=== PATIENT | male | born 1935 | race Caucasian/White ===

== ENCOUNTER 2018-09-17 14:40 | Emergency (ER) | payer MEDICARE, OTHER ==
[~2018-09-17] VITALS: Ht 185.4 cm; Wt 123.2 kg
[~2018-09-17 14:40] MED LIST: ALLO100T PO; ASPI-611 PO; CHOL10002 PO; COLC0.6T69 PO; DABI150C PO; DOCU-20 PO; DULO-31 PO; FLO0.4C PO; GABA-530 PO; LOSA25TA96 PO; METO100T14 PO; NITR0.4T51 SL; PANT40TA39 PO; POLY17PO26 PO; PRAV20TA4 PO; TRAM50TA2 PO
--- NOTE | 2018-09-17 15:08 | NUR ---
BIB EMS FROM [place] DUE TO SOB AND CHEST PAIN WITH INSPIRATION AND COUGH. WHEEZING WITH NEB IN PROGRESS. #20 L FA. BG 107. DENIES CHEST PAIN AT PRESENT. HX CHF, PACEMAKER, COPD
[2018-09-17] MEDS ORDERED: methylPREDNISolone sod succ 125mg/2ml vial IV ONE ×2 (15:15→17:55)
[2018-09-17] MEDS ORDERED: ipratropium/albuterol 3ml nebule NEB ONE (15:15)
[2018-09-17] MEDS ORDERED: albuterol 2.5 MG/3 ML nebule NEB ONE (15:15)
[2018-09-17 15:42] LABS: BASOPHILS % (AUTO) 0.6 % (0-1); EOSINOPHILS # (AUTO) 0.2 X10'3 (0-0.9); EOSINOPHILS % (AUTO) 2.5 % (0-6); HEMATOCRIT 36.3 % (42.0-52.0); HEMOGLOBIN 11.6 g/dl (14.0-17.9); LYMPHOCYTES # (AUTO) 1.4 X10'3 (1.1-4.8); LYMPHOCYTES % (AUTO) 22.6 % (21-51); MEAN CORPUSCULAR HEMOGLOBIN 28.9 PG (27.0-31.0); MEAN CORPUSCULAR VOLUME 90.4 FL (78-98); MONOCYTES # (AUTO) 0.7 X10'3 (0-0.9); MONOCYTES % (AUTO) 11.9 % (2-12); NEUTROPHILS # (AUTO) 3.7 X10'3 (1.8-7.7); NEUTROPHILS % (AUTO) 62.4 % (42-75); PLATELET COUNT 264 X10'3 (140-440); RED BLOOD COUNT 4.02 X10'6 (4.70-6.10); RED CELL DISTRIBUTION WIDTH 16.3 % (11.5-14.5)
[2018-09-17 15:55] LABS: INR 1.2 INR; PROTHROMBIN TIME 11.6 SECONDS (9.0-12.0)
[2018-09-17 15:59] LABS: ALANINE AMINOTRANSFERASE 15 U/L (12-78); ALBUMIN 3.1 G/DL (3.4-5.0); ALBUMIN/GLOBULIN RATIO 0.8 (1.1-1.5); ALKALINE PHOSPHATASE 51 IU/L (46-116); ANION GAP 9 (8-16); ASPARTATE AMINO TRANSFERASE 19 U/L (10-37); BILIRUBIN,TOTAL 0.3 MG/DL (0.1-1.0); BLOOD UREA NITROGEN 19 MG/DL (7-18); BUN/CREATININE RATIO 12.9 (5.4-32.0); CALCIUM 8.9 MG/DL (8.5-10.1); CHLORIDE 104 MMOL/L (99-107); CREATININE 1.47 MG/DL (0.60-1.10); GLUCOSE 108 MG/DL (70-104); POTASSIUM 3.8 MMOL/L (3.5-5.1); SODIUM 139 MMOL/L (135-145); TOTAL CARBON DIOXIDE 26.5 MMOL/L (24-32); TOTAL PROTEIN 6.8 G/DL (6.4-8.2); eGFR 46 ML/MIN
[2018-09-17] MEDS ORDERED: CefTRIAXone 2gm/D5W 50ml 50 ML IV ONE (16:25)
[2018-09-17] MEDS ORDERED: ALBU18HF2 INH (17:52)
[2018-09-17] MEDS ORDERED: PRED20TA PO (17:52)
[2018-09-17] MEDS ORDERED: AZIT250T PO (17:52)
[2018-09-17 18:36] VITALS: BP 175/82
== END 2018-09-17 18:38 | disposition home or self-care (01) ==
LOC: ER 14:40
DX: J44.1 Chronic obstructive pulmonary disease with (acute) exacerbation (principal); R06.09 Other forms of dyspnea; I48.91 Unspecified atrial fibrillation; I11.0 Hypertensive heart disease with heart failure; I50.9 Heart failure, unspecified; E78.00 Pure hypercholesterolemia, unspecified; G89.29 Other chronic pain; Z98.890 Other specified postprocedural states; Z79.82 Long term (current) use of aspirin; Z79.899 Other long term (current) drug therapy
CPT/HCPCS: 36415; 71045; 80053; 83880; 84484; 85025; 85610; 93005; 94640; 96365; 96375; 99284; J0696; J2930

== ENCOUNTER 2018-12-15 18:31 | Emergency (ER) | payer MEDICARE, OTHER ==
[~2018-12-15] VITALS: Ht 182.9 cm; Wt 120.0 kg
[~2018-12-15 18:31] MED LIST changes: +ALBU18HF2 INH; +AZIT250T PO
--- NOTE | 2018-12-15 18:54 | NUR ---
christiano, , bedside. she witnessed both falls.
[2018-12-15] MEDS ORDERED: normal saline 1000ML IV soln IVB ONE (18:55)
[2018-12-15 19:21] LABS: BASOPHILS % (AUTO) 0.5 % (0-1); EOSINOPHILS # (AUTO) 0.1 X10'3 (0-0.9); EOSINOPHILS % (AUTO) 1.6 % (0-6); HEMATOCRIT 32.3 % (42.0-52.0); HEMOGLOBIN 10.5 g/dl (14.0-17.9); LYMPHOCYTES % (AUTO) 28.9 % (21-51); MEAN CORPUSCULAR HEMOGLOBIN 27.8 PG (27.0-31.0); MEAN CORPUSCULAR HGB CONC 32.3 g/dL (33.0-36.5); MEAN CORPUSCULAR VOLUME 85.9 FL (78-98); MEAN PLATELET VOLUME 9.2 FL (7.4-10.4); MONOCYTES # (AUTO) 0.8 X10'3 (0-0.9); MONOCYTES % (AUTO) 11.1 % (2-12); NEUTROPHILS # (AUTO) 4.1 X10'3 (1.8-7.7); NEUTROPHILS % (AUTO) 57.9 % (42-75); PLATELET COUNT 329 X10'3 (140-440); RED BLOOD COUNT 3.77 X10'6 (4.70-6.10); RED CELL DISTRIBUTION WIDTH 16.8 % (11.5-14.5); WHITE BLOOD COUNT 7.1 X10'3 (4.5-11.0)
[2018-12-15 19:27] LABS: ALANINE AMINOTRANSFERASE 14 U/L (12-78); ALBUMIN 3.1 G/DL (3.4-5.0); ALBUMIN/GLOBULIN RATIO 0.8 (1.1-1.5); ALKALINE PHOSPHATASE 53 IU/L (46-116); ANION GAP 7 (8-16); ASPARTATE AMINO TRANSFERASE 10 U/L (10-37); BILIRUBIN,TOTAL 0.4 MG/DL (0.1-1.0); BLOOD UREA NITROGEN 29 MG/DL (7-18); BUN/CREATININE RATIO 14.4 (5.4-32.0); CALCIUM 9.2 MG/DL (8.5-10.1); CHLORIDE 103 MMOL/L (99-107); CREATININE 2.01 MG/DL (0.60-1.10); GLUCOSE 122 MG/DL (70-104); POTASSIUM 3.7 MMOL/L (3.5-5.1); SODIUM 136 MMOL/L (135-145); TOTAL CARBON DIOXIDE 25.7 MMOL/L (24-32); TOTAL PROTEIN 6.8 G/DL (6.4-8.2); eGFR 32 ML/MIN
--- NOTE | 2018-12-15 19:30 | NUR ---
ICE PACK APPLIED TO LEFT ARM EDEMA.
[2018-12-15] MEDS ORDERED: acetaminophen 325mg tablet PO ONE (20:40)
[2018-12-15 21:19] VITALS: BP 123/60
[2018-12-15] MEDS ORDERED: HYDROcodone/acetaminophen 10/325mg tab PO ONE (21:20)
[2018-12-15] MEDS ORDERED: HYDR-4353 PO (21:21)
== END 2018-12-15 21:50 | disposition home or self-care (01) ==
LOC: ER 18:32
DX: S00.211A Abrasion of right eyelid and periocular area, initial encounter (principal); E86.0 Dehydration; M25.511 Pain in right shoulder; M25.551 Pain in right hip; I48.91 Unspecified atrial fibrillation; I11.0 Hypertensive heart disease with heart failure; I50.9 Heart failure, unspecified; E78.00 Pure hypercholesterolemia, unspecified; G89.29 Other chronic pain; Z98.890 Other specified postprocedural states; Z79.82 Long term (current) use of aspirin; Z79.899 Other long term (current) drug therapy; W18.39XA Other fall on same level, initial encounter; Y93.89 Activity, other specified; Y92.89 Other specified places as the place of occurrence of the external cause; Y99.8 Other external cause status
CPT/HCPCS: 36415; 70450; 71045; 80053; 85025; 93005; 99284; J7030

== ENCOUNTER 2019-03-24 14:15 | Outpatient (CLI) | payer MEDICARE, OTHER ==
[~2019-03-24] VITALS: Ht 182.9 cm; Wt 117.9 kg
[2019-03-24 14:41] LABS: TOTAL HEMOGLOBIN 9.4 G/dl (14.0-17.9)
[2019-03-24] MEDS ORDERED: albuterol 2.5 MG/3 ML nebule NEB ONE (15:00)
== END 2019-03-24 23:59 | disposition home or self-care (01) ==
LOC: RT 14:15
PROVIDERS: ATTEND Specialist
DX: J98.4 Other disorders of lung (principal); I10 Essential (primary) hypertension; F17.200 Nicotine dependence, unspecified, uncomplicated
CPT/HCPCS: 85018; 94060; 94727; 94729; 94760

== ENCOUNTER 2019-04-26 04:59 | Day surgery (SDC) | payer MEDICARE, OTHER ==
[2019-04-21 13:35] LABS: BASOPHILS % (AUTO) 0.6 % (0-1); EOSINOPHILS # (AUTO) 0.2 X10'3 (0-0.9); EOSINOPHILS % (AUTO) 3.2 % (0-6); HEMATOCRIT 40.8 % (42.0-52.0); HEMOGLOBIN 13.3 g/dl (14.0-17.9); LYMPHOCYTES # (AUTO) 1.6 X10'3 (1.1-4.8); MEAN CORPUSCULAR HEMOGLOBIN 29.3 PG (27.0-31.0); MEAN CORPUSCULAR HGB CONC 32.5 g/dL (33.0-36.5); MEAN CORPUSCULAR VOLUME 90.1 FL (78-98); MEAN PLATELET VOLUME 9.2 FL (7.4-10.4); MONOCYTES # (AUTO) 0.7 X10'3 (0-0.9); MONOCYTES % (AUTO) 12.6 % (2-12); NEUTROPHILS # (AUTO) 3.2 X10'3 (1.8-7.7); NEUTROPHILS % (AUTO) 55.6 % (42-75); PLATELET COUNT 238 X10'3 (140-440); RED BLOOD COUNT 4.53 X10'6 (4.70-6.10); WHITE BLOOD COUNT 5.8 X10'3 (4.5-11.0)
[2019-04-21 13:46] LABS: ALBUMIN 3.3 G/DL (3.4-5.0); ANION GAP 11 (8-16); BLOOD UREA NITROGEN 27 MG/DL (7-18); CALCIUM 9.4 MG/DL (8.5-10.1); CHLORIDE 103 MMOL/L (99-107); CREATININE 1.69 MG/DL (0.60-1.10); GLUCOSE 105 MG/DL (70-104); POTASSIUM 4.3 MMOL/L (3.5-5.1); SODIUM 138 MMOL/L (135-145); TOTAL CARBON DIOXIDE 24.5 MMOL/L (24-32); eGFR 39 ML/MIN
[2019-04-21 13:48] LABS: PARTIAL THROMBOPLASTIN TIME 35 SECONDS (22-32)
[2019-04-21 15:24] LABS: ELLIPTOCYTES FEW; PLATELET ESTIMATE NORMAL; POLYCHROMASIA FEW
[2019-04-21 15:25] LABS: SCHISTOCYTES FEW
[2019-04-26] VITALS (19 sets, daily range): BP systolic 131–172; BP diastolic 55–77
[~2019-04-26] VITALS: Ht 182.9 cm; Wt 123.3 kg
[2019-04-26] MEDS ORDERED: normal saline 1,000 ML IV SCH (05:20)
[2019-04-26] MEDS ORDERED: LORazepam 0.5 MG tablet PO PRN (05:20)
[2019-04-26] MEDS ORDERED: diphenhydrAMINE 25mg capsule PO PRN (05:20)
[2019-04-26] MEDS ORDERED: FEBU40TA PO (05:47)
[2019-04-26] MEDS ORDERED: POTA-82 PO (05:47)
[2019-04-26] MEDS ORDERED: FURO40TA4 PO (05:47)
[2019-04-26] MEDS ORDERED: CYAN100T12 (05:47)
[2019-04-26] MEDS ORDERED: RIVA20TA PO (05:47)
[2019-04-26] MEDS ORDERED: SIME80TA16 (05:47)
[2019-04-26] MEDS ORDERED: iohexol 350 MG/ML 50ML vial IV ONE (06:28)
[2019-04-26] MEDS ORDERED: fentaNYL/PF 50MCG/1 ML 2ML syringe ONE (06:28)
[2019-04-26] MEDS ORDERED: midazolam 2 mg/2 ml injection ONE (06:28)
[2019-04-26] MEDS ORDERED: iohexol 350MG/ML 100ml bottle IV ONE (06:28)
[2019-04-26] MEDS ORDERED: LIDOcaine 1% (10mg/ml)w/preservative injection 20ml MDV ONE (06:28)
[2019-04-26] MEDS ORDERED: heparin 1,000unit/ml 10ml vial 10 ML ONE (06:45)
[2019-04-26] MEDS ORDERED: hydrALAZINE 20mg/ml inj. IV ONE (06:54)
[2019-04-26] MEDS ORDERED: ticagrelor 90mg tablet ONE (06:56)
[2019-04-26] MEDS ORDERED: HYDROcodone/acetaminophen 5mg/325mg tablet PO PRN (07:35)
[2019-04-26] MEDS ORDERED: ondansetron/PF 4mg/2ml inj IV PRN (07:35)
[2019-04-26] MEDS ORDERED: proCHLORperazine 10 MG/2 ml inj IV PRN (07:35)
[2019-04-26] MEDS ORDERED: acetaminophen 325mg tablet PO PRN (07:35)
[2019-04-26] MEDS ORDERED: HYDROcodone/acetaminophen 10/325mg tab PO PRN (07:35)
== END 2019-04-26 16:05 | disposition home or self-care (01) ==
LOC: SSTAY O 04:59
PROVIDERS: ATTEND Internal Medicine Interventional Cardiology
DX: I25.10 Atherosclerotic heart disease of native coronary artery without angina pectoris (principal); I13.0 Hypertensive heart and chronic kidney disease with heart failure and stage 1 through stage 4 chronic kidney disease, or unspecified chronic kidney disease; N18.9 Chronic kidney disease, unspecified; I48.91 Unspecified atrial fibrillation; I50.9 Heart failure, unspecified; G47.33 Obstructive sleep apnea (adult) (pediatric); M10.9 Gout, unspecified; E78.5 Hyperlipidemia, unspecified; Z95.0 Presence of cardiac pacemaker; Z79.899 Other long term (current) drug therapy; Z87.891 Personal history of nicotine dependence
CPT/HCPCS: 36415; 80048; 85025; 85610; 85730; 93005; 99152; 99153; C1769; C1874; C9600; J0360; J1644; J2001; J2250; J3010; J7030; Q0163; Q9967; A4620; A6258; C1760

== ENCOUNTER 2021-06-05 08:32 | Day surgery (SDC) | payer OTHER ==
[~2021-06-05] VITALS: Ht 182.9 cm; Wt 127.2 kg
[~2021-06-05 08:32] MED LIST changes: -ALBU18HF2 INH; -ALLO100T PO; -ASPI-611 PO; +ASPI81TA52 PO; -AZIT250T PO; -COLC0.6T69 PO; +CYAN100T6; -DABI150C PO; -DOCU-20 PO; +FEBU40TA PO; +FERR325T28 PO; +FURO40TA4 PO; +LOP25T PO; -METO100T14 PO; -NITR0.4T51 SL; -POLY17PO26 PO; +POTA-82 PO; +RIVA20TA PO; +SIME80TA16; +TICA90TA PO; -TRAM50TA2 PO
[2021-06-05] MEDS ORDERED: albumin 25% 100mL bottle x 1 IV PRN (08:55)
[2021-06-05] MEDS ORDERED: normal saline 1000ml 1,000 ML IV PRN (08:55)
[2021-06-05 09:15] VITALS: BP 136/71
[2021-06-05 09:39] LABS: BASOPHILS % (AUTO) 0.7 % (0-1); EOSINOPHILS # (AUTO) 0.2 X10'3 (0-0.9); EOSINOPHILS % (AUTO) 2.8 % (0-6); HEMATOCRIT 36.2 % (42.0-52.0); HEMOGLOBIN 12.3 g/dl (14.0-17.9); LYMPHOCYTES # (AUTO) 1.3 X10'3 (1.1-4.8); LYMPHOCYTES % (AUTO) 21.5 % (21-51); MEAN CORPUSCULAR HEMOGLOBIN 34.6 PG (27.0-31.0); MEAN CORPUSCULAR HGB CONC 33.9 g/dL (33.0-36.5); MEAN CORPUSCULAR VOLUME 102.1 FL (78-98); MEAN PLATELET VOLUME 9.8 FL (7.4-10.4); MONOCYTES # (AUTO) 0.5 X10'3 (0-0.9); MONOCYTES % (AUTO) 8.8 % (2-12); NEUTROPHILS % (AUTO) 66.2 % (42-75); PLATELET COUNT 263 X10'3 (140-440); RED BLOOD COUNT 3.54 X10'6 (4.70-6.10); RED CELL DISTRIBUTION WIDTH 14.3 % (11.5-14.5); WHITE BLOOD COUNT 6.1 X10'3 (4.5-11.0)
[2021-06-05] MEDS ORDERED: LEVO25TA7 PO (16:02)
[2021-06-05] MEDS ORDERED: CHOL200012 PO (16:02)
[2021-06-05] MEDS ORDERED: BACI1PAC7 TOP (16:02)
[2021-06-05] MEDS ORDERED: DULO60CA65 PO (16:02)
[2021-06-05] MEDS ORDERED: TRAM50TA2 PO (16:02)
[2021-06-05] MEDS ORDERED: GABA300C PO (16:02)
[2021-06-05] MEDS ORDERED: LIDO28.35 TOP (16:02)
[2021-06-05] MEDS ORDERED: CYAN-51 PO (16:02)
[2021-06-05] MEDS ORDERED: GUAI200T5 PO (16:02)
[2021-06-05] MEDS ORDERED: SIME80TA15 PO (16:02)
== END 2021-06-05 09:03 | disposition home or self-care (01) ==
LOC: SSTAY O 08:32
PROVIDERS: ATTEND Radiology Vascular & Interventional Radiology
DX: R91.1 Solitary pulmonary nodule (principal); Z53.8 Procedure and treatment not carried out for other reasons; Z79.899 Other long term (current) drug therapy; Z79.82 Long term (current) use of aspirin; Z98.890 Other specified postprocedural states
CPT/HCPCS: 36415; 85025; 85610

== ENCOUNTER 2021-06-07 08:30 | Day surgery (SDC) | payer OTHER ==
[~2021-06-07] VITALS: Ht 182.9 cm; Wt 127.6 kg
[2021-06-07] VITALS (24 sets, daily range): BP systolic 136–185; BP diastolic 50–98
[~2021-06-07 08:30] MED LIST changes: -ASPI81TA52 PO; +BACI1PAC7 TOP; -CHOL10002 PO; +CHOL200012 PO; +CYAN-51 PO; -CYAN100T6; -DULO-31 PO; +DULO60CA65 PO; -FEBU40TA PO; -FERR325T28 PO; -FURO40TA4 PO; -GABA-530 PO; +GABA300C PO; +GUAI200T5 PO; +LEVO25TA7 PO; +LIDO28.35 TOP; -LOP25T PO; -LOSA25TA96 PO; -POTA-82 PO; -PRAV20TA4 PO; +SIME80TA15 PO; -SIME80TA16; -TICA90TA PO; +TRAM50TA2 PO
[2021-06-07] MEDS ORDERED: albumin 25% 100mL bottle x 1 IV PRN (08:55)
[2021-06-07] MEDS ORDERED: fentaNYL/PF 50MCG/1 ML 2ML syringe ONE (09:02)
[2021-06-07] MEDS ORDERED: midazolam 1 mg/ML 2ml injection ONE (09:02)
[2021-06-07] MEDS ORDERED: gelatin sponge, absorbable (Gelfoam 12-7MM) sponge TP ONE (09:02)
--- NOTE | 2021-06-07 13:25 | NUR ---
Call to IR to notify Dr grijalva pt had 3 chest xrays completed. pt has no distress. on RA. Dr Grijalva in case, spoke with Laurence COWART.
--- NOTE | 2021-06-07 14:10 | NUR ---
Called from Laurence COWART from IR stating Dr Grijalva wants pt placed on low suction. Pt placed on left side, continuous low suction started. pt has no distress, no difficulty breathing, chest tube site is stable with no changes.
--- NOTE | 2021-06-07 15:00 | NUR ---
Spoke with Dr Grijalva. Stated will order stat chest xray to evaluate if pneumothorax is resolved. Ordered to clamp the tube and stated will order a final xray to see if any changes. Pt watching tv with no signs of distress.
--- NOTE | 2021-06-07 15:15 | NUR ---
clamped pt chest tube.
--- NOTE | 2021-06-07 16:32 | NUR ---
pt ambulated to bathroom, no assistance needed.
--- NOTE | 2021-06-07 17:00 | NUR ---
Dr Serrato at bedside, removed chest tube. Stated will order one additional chest xray and once resulted and no changes pt able to be dc'd. Dr serrato answered all pt and wifes questions.
== END 2021-06-07 17:45 | disposition home or self-care (01) ==
LOC: SSTAY O 08:30
PROVIDERS: ATTEND Radiology Vascular & Interventional Radiology
DX: R91.8 Other nonspecific abnormal finding of lung field (principal); J95.811 Postprocedural pneumothorax; I10 Essential (primary) hypertension; Z88.8 Allergy status to other drugs, medicaments and biological substances; Z79.899 Other long term (current) drug therapy; Z98.890 Other specified postprocedural states; Z87.891 Personal history of nicotine dependence; Z81.8 Family history of other mental and behavioral disorders; Y84.8 Other medical procedures as the cause of abnormal reaction of the patient, or of later complication, without mention of misadventure at the time of the procedure; Y92.239 Unspecified place in hospital as the place of occurrence of the external cause
CPT/HCPCS: 32408; 71045; 99152; 99153; J2250; J3010; 77012

== ENCOUNTER 2021-07-28 19:16 | Emergency (ER) | payer OTHER, MEDICARE ==
[~2021-07-28] VITALS: Ht 182.9 cm; Wt 117.3 kg
[2021-07-28 19:56] LABS: BASOPHILS % (AUTO) 0.7 % (0-1); EOSINOPHILS # (AUTO) 0.2 X10'3 (0-0.9); EOSINOPHILS % (AUTO) 3.6 % (0-6); HEMATOCRIT 30.7 % (42.0-52.0); HEMOGLOBIN 10.3 g/dl (14.0-17.9); LYMPHOCYTES # (AUTO) 1.3 X10'3 (1.1-4.8); LYMPHOCYTES % (AUTO) 19.6 % (21-51); MEAN CORPUSCULAR HEMOGLOBIN 31.7 PG (27.0-31.0); MEAN CORPUSCULAR HGB CONC 33.5 g/dL (33.0-36.5); MEAN CORPUSCULAR VOLUME 94.7 FL (78-98); MEAN PLATELET VOLUME 9.7 FL (7.4-10.4); MONOCYTES # (AUTO) 0.7 X10'3 (0-0.9); MONOCYTES % (AUTO) 10.9 % (2-12); NEUTROPHILS # (AUTO) 4.3 X10'3 (1.8-7.7); NEUTROPHILS % (AUTO) 65.2 % (42-75); PLATELET COUNT 288 X10'3 (140-440); RED BLOOD COUNT 3.25 X10'6 (4.70-6.10); RED CELL DISTRIBUTION WIDTH 14.7 % (11.5-14.5); WHITE BLOOD COUNT 6.6 X10'3 (4.5-11.0)
[2021-07-28 20:00] LABS: D-DIMER 0.23 MG/L FEU (0-0.50)
[2021-07-28 20:03] LABS: ALANINE AMINOTRANSFERASE 16 U/L (12-78); ALBUMIN 3.2 G/DL (3.4-5.0); ALBUMIN/GLOBULIN RATIO 0.9 (1.1-1.5); ALKALINE PHOSPHATASE 68 IU/L (46-116); ANION GAP 6 (8-16); ASPARTATE AMINO TRANSFERASE 10 U/L (10-37); BILIRUBIN,TOTAL 0.3 MG/DL (0.1-1.0); BLOOD UREA NITROGEN 29 MG/DL (7-18); BUN/CREATININE RATIO 18.1 (5.4-32.0); CALCIUM 8.9 MG/DL (8.5-10.1); CHLORIDE 105 MMOL/L (99-107); GLUCOSE 117 MG/DL (70-104); POTASSIUM 4.8 MMOL/L (3.5-5.1); SODIUM 140 MMOL/L (135-145); TOTAL CARBON DIOXIDE 29.5 MMOL/L (24-32); TOTAL PROTEIN 6.8 G/DL (6.4-8.2); eGFR 41 ML/MIN
[2021-07-28 20:04] VITALS: BP 127/57
[2021-07-28] MEDS ORDERED: normal saline 1000ML IV soln IVB ONE (20:30)
[2021-07-28] MEDS ORDERED: normal saline 1000ml 1,000 ML IV ONE (20:30)
[2021-07-28 21:29] LABS: CLARITY,URINE CLEAR (Clear); COLOR,URINE YELLOW (Yellow); GLUCOSE, URINE NEGATIVE (Neg); KETONES,URINE NEGATIVE (Neg); LEUKOCYTE ESTERASE ,URINE NEGATIVE (Neg); NITRITES, URINE NEGATIVE (Neg); OCCULT BLOOD,URINE NEGATIVE (Neg); PROTEIN,URINE NEGATIVE (Neg); UROBILINOGEN,URINE 0.2 E.U/dL (0.2-1.0)
[2021-07-28] MEDS ORDERED: magnesium oxide 400mg tablet PO ONE (21:35)
[2021-07-28 21:36] LABS: UA COLLECTION TYPE URINAL
== END 2021-07-28 21:57 | disposition home or self-care (01) ==
LOC: ER 19:16
DX: R06.00 Dyspnea, unspecified (principal); Z20.822 Contact with and (suspected) exposure to COVID-19; R06.02 Shortness of breath; R42 Dizziness and giddiness; R11.2 Nausea with vomiting, unspecified; I12.9 Hypertensive chronic kidney disease with stage 1 through stage 4 chronic kidney disease, or unspecified chronic kidney disease; N18.9 Chronic kidney disease, unspecified; I48.91 Unspecified atrial fibrillation; G30.9 Alzheimer's disease, unspecified; F02.80 Dementia in other diseases classified elsewhere, unspecified severity, without behavioral disturbance, psychotic disturbance, mood disturbance, and anxiety; Z20.89 Contact with and (suspected) exposure to other communicable diseases; Z95.0 Presence of cardiac pacemaker; Z88.8 Allergy status to other drugs, medicaments and biological substances; Z79.899 Other long term (current) drug therapy; Z88.1 Allergy status to other antibiotic agents
CPT/HCPCS: 36415; 71045; 80053; 81003; 83605; 83880; 84145; 84484; 85025; 85379; 86140; 87040; 87635; 93005; 96360; 99285; C9803; J7030

== ENCOUNTER 2021-10-22 13:13 | Emergency (ER) | payer OTHER, MEDICARE ==
[~2021-10-22] VITALS: Ht 182.9 cm; Wt 121.0 kg
[2021-10-22] MEDS ORDERED: HYDROcodone/acetaminophen 10/325mg tab PO ONE (16:05)
--- NOTE | 2021-10-22 16:25 | NUR ---
PATIENT SITTING UP IN BED EATING LUNCH TRAY PROVIDED. PATIENT ABLE TO REPOSITION SELF IN BED WITH ASSISTANCE AND SIT UP IN BED INDEPENDENTLY.
--- NOTE | 2021-10-22 16:30 | NUR ---
Patient to Xray at this time.
[2021-10-22] MEDS ORDERED: HYDR-3972 PO (17:49)
--- NOTE | 2021-10-22 17:50 | NUR ---
CALL TO TO [employer] PATIENT, STATES SHE IS ON HER WAY.
[2021-10-22 17:51] VITALS: BP 164/66
== END 2021-10-22 19:01 | disposition home or self-care (01) ==
LOC: ER 13:14
DX: S30.0XXA Contusion of lower back and pelvis, initial encounter (principal); M54.50 Low back pain, unspecified; G89.29 Other chronic pain; I48.91 Unspecified atrial fibrillation; I10 Essential (primary) hypertension; M19.90 Unspecified osteoarthritis, unspecified site; Z95.0 Presence of cardiac pacemaker; Z98.890 Other specified postprocedural states; Z72.89 Other problems related to lifestyle; Z88.8 Allergy status to other drugs, medicaments and biological substances; Z79.899 Other long term (current) drug therapy; W19.XXXA Unspecified fall, initial encounter; Y93.89 Activity, other specified; Y92.89 Other specified places as the place of occurrence of the external cause; Y99.8 Other external cause status
CPT/HCPCS: 72100; 72170; 99285

== ENCOUNTER 2022-02-15 22:18 | Emergency (ER) | payer OTHER, MEDICARE ==
[~2022-02-15] VITALS: Ht 185.4 cm; Wt 117.3 kg
[~2022-02-15 22:18] MED LIST changes: +ALLO300T8 PO; +AMIO200T10 PO; -BACI1PAC7 TOP; +CARV3.122 PO; -CHOL200012 PO; +CHOL20003 PO; +COLC0.6T72 PO; +FEBU40TA3 PO; +FURO40TA4 PO; -GUAI200T5 PO; +NITR0.4T51 SL; -PANT40TA39 PO; +PANT40TA54 PO; +POTA-207 PO; +SACU1TAB PO
[2022-02-15 23:39] LABS: BASOPHILS % (AUTO) 0.2 % (0-1); EOSINOPHILS # (AUTO) 0.1 X10'3 (0-0.9); EOSINOPHILS % (AUTO) 1.9 % (0-6); HEMATOCRIT 35.6 % (42.0-52.0); HEMOGLOBIN 11.9 g/dl (14.0-17.9); LYMPHOCYTES # (AUTO) 1.2 X10'3 (1.1-4.8); LYMPHOCYTES % (AUTO) 21.6 % (21-51); MEAN CORPUSCULAR HEMOGLOBIN 33.1 PG (27.0-31.0); MEAN CORPUSCULAR HGB CONC 33.4 g/dL (33.0-36.5); MEAN CORPUSCULAR VOLUME 99.2 FL (78-98); MONOCYTES # (AUTO) 0.6 X10'3 (0-0.9); MONOCYTES % (AUTO) 10.5 % (2-12); NEUTROPHILS # (AUTO) 3.8 X10'3 (1.8-7.7); NEUTROPHILS % (AUTO) 65.8 % (42-75); RED BLOOD COUNT 3.59 X10'6 (4.70-6.10); RED CELL DISTRIBUTION WIDTH 15.8 % (11.5-14.5); WHITE BLOOD COUNT 5.7 X10'3 (4.5-11.0)
[2022-02-15 23:56] LABS: ALANINE AMINOTRANSFERASE 21 U/L (12-78); ALBUMIN 2.7 G/DL (3.4-5.0); ALBUMIN/GLOBULIN RATIO 0.8 (1.1-1.5); ALKALINE PHOSPHATASE 60 IU/L (46-116); ANION GAP 8 (8-16); ASPARTATE AMINO TRANSFERASE 26 U/L (10-37); BILIRUBIN,TOTAL 0.3 MG/DL (0.1-1.0); BLOOD UREA NITROGEN 37 MG/DL (7-18); BUN/CREATININE RATIO 23.4 (5.4-32.0); CALCIUM 8.4 MG/DL (8.5-10.1); CHLORIDE 100 MMOL/L (99-107); CREATININE 1.58 MG/DL (0.60-1.10); GLUCOSE 118 MG/DL (70-104); SODIUM 136 MMOL/L (135-145); TOTAL CARBON DIOXIDE 28.1 MMOL/L (24-32); TOTAL PROTEIN 6.3 G/DL (6.4-8.2); eGFR 42 ML/MIN
[2022-02-16 00:12] LABS: PLATELET COUNT 151 X10'3 (140-440)
--- NOTE | 2022-02-16 01:02 | NUR ---
call from lab. Pt is covid positive.
[2022-02-16] MEDS ORDERED: BEBTELOVIMAB 175 MG/2 ML VIAL IV ONE (01:30)
[2022-02-16] MEDS ORDERED: hydrocortisone sod succ/PF 100mg/2ml inj. IV PRN (01:40)
[2022-02-16] MEDS ORDERED: acetaminophen 325mg tablet PO PRN (01:40)
[2022-02-16] MEDS ORDERED: famotidine/PF 10 mg/ml inj IV PRN (01:40)
[2022-02-16] MEDS ORDERED: diphenhydrAMINE 50 mg/ml inj IV PRN (01:40)
[2022-02-16] MEDS ORDERED: albuterol 2.5 MG/3 ML nebule NEB PRN (01:40)
[2022-02-16] MEDS ORDERED: epiNEPHrine 1 mg/ml inj IM PRN (01:40)
--- NOTE | 2022-02-16 06:41 | NUR ---
EMS Arrived for patient
[2022-02-16 06:45] VITALS: BP 130/79
== END 2022-02-16 06:53 | disposition home or self-care (01) ==
LOC: ER 22:19
DX: U07.1 COVID-19 (principal); R19.7 Diarrhea, unspecified; R05.9 Cough, unspecified; J02.9 Acute pharyngitis, unspecified; R50.9 Fever, unspecified; I48.91 Unspecified atrial fibrillation; I10 Essential (primary) hypertension; M19.90 Unspecified osteoarthritis, unspecified site; G89.29 Other chronic pain; Z95.0 Presence of cardiac pacemaker; Z72.89 Other problems related to lifestyle; Z88.8 Allergy status to other drugs, medicaments and biological substances; Z79.899 Other long term (current) drug therapy
CPT/HCPCS: 36415; 80053; 84484; 85025; 87635; 93005; 99285; C9803; M0222; Q0222

== ENCOUNTER 2022-09-13 08:15 | Inpatient (IN) | payer OTHER, MEDICARE ==
[~2022-09-13] VITALS: Ht 182.9 cm; Wt 113.0 kg
[~2022-09-13 08:15] MED LIST changes: +ACET325T53 PO; +ASCO500C17 PO; +BISA10SU60 RC; +DOCU100C40 PO; +IBUP200C5 PO; +IPRA4AER IH; +LACT1CAP75 PO; +LOSA50TA64 PO; +MAG-154 PO; +NA P133E4 RC; +OMEP20TA23 PO; -PANT40TA54 PO; -SACU1TAB PO
[2022-09-13 08:54] LABS: BASOPHILS # (AUTO) 0.1 X10'3 (0-0.2); BASOPHILS % (AUTO) 0.7 % (0-1); EOSINOPHILS # (AUTO) 0.1 X10'3 (0-0.9); EOSINOPHILS % (AUTO) 0.5 % (0-6); HEMATOCRIT 31.3 % (42.0-52.0); HEMOGLOBIN 10.3 g/dl (14.0-17.9); LYMPHOCYTES # (AUTO) 1.7 X10'3 (1.1-4.8); LYMPHOCYTES % (AUTO) 15.4 % (21-51); MEAN CORPUSCULAR HEMOGLOBIN 33.5 PG (27.0-31.0); MEAN CORPUSCULAR HGB CONC 32.8 g/dL (33.0-36.5); MEAN CORPUSCULAR VOLUME 102.1 FL (78-98); MEAN PLATELET VOLUME 9.9 FL (7.4-10.4); MONOCYTES # (AUTO) 0.8 X10'3 (0-0.9); MONOCYTES % (AUTO) 7.1 % (2-12); NEUTROPHILS # (AUTO) 8.4 X10'3 (1.8-7.7); NEUTROPHILS % (AUTO) 76.3 % (42-75); PLATELET COUNT 269 X10'3 (140-440); RED BLOOD COUNT 3.06 X10'6 (4.70-6.10); RED CELL DISTRIBUTION WIDTH 17.8 % (11.5-14.5)
[2022-09-13 09:08] LABS: ALANINE AMINOTRANSFERASE 29 U/L (12-78); ALBUMIN 3.5 G/DL (3.4-5.0); ALKALINE PHOSPHATASE 57 IU/L (46-116); ANION GAP 6 (8-16); ASPARTATE AMINO TRANSFERASE 26 U/L (10-37); BILIRUBIN,TOTAL 0.5 MG/DL (0.1-1.0); BLOOD UREA NITROGEN 33 MG/DL (7-18); BUN/CREATININE RATIO 24.1 (5.4-32.0); CALCIUM 10.2 MG/DL (8.5-10.1); CHLORIDE 106 MMOL/L (99-107); CREATININE 1.37 MG/DL (0.60-1.10); GLUCOSE 127 MG/DL (70-104); POTASSIUM 4.7 MMOL/L (3.5-5.1); SODIUM 141 MMOL/L (135-145); TOTAL CARBON DIOXIDE 29.3 MMOL/L (24-32); TOTAL PROTEIN 7.1 G/DL (6.4-8.2); eGFR 49 ML/MIN
[2022-09-13] MEDS ORDERED: aspirin 81mg tab.chew PO ONE (09:30)
[2022-09-13] MEDS ORDERED: methylPREDNISolone sod succ 125mg/2ml vial IV ONE (09:30)
[2022-09-13] MEDS ORDERED: albuterol 2.5 MG/3 ML nebule NEB ONE (09:30)
[2022-09-13] MEDS ORDERED: furosemide 40mg/4ml inj IV ONE (09:30)
[2022-09-13 09:48] LABS: D-DIMER 0.24 MG/L FEU (0-0.50)
--- NOTE | 2022-09-13 10:12 | NUR ---
PT denies pulmonary history states sob last night has not taken his Lasix for 2 days. Pt wears 2lpm oxygen prn at home, no pulmonary medications no sleep apnea per pt.
[2022-09-13] MEDS ORDERED: iohexol 300mg/ml 100ml inj. ONE (11:27)
--- NOTE | 2022-09-13 12:04 | NUR ---
condom cath placed for pt. pt cleaned and changed. linens changed
[2022-09-13] MEDS ORDERED: CefTRIAXone/D5W-Rocephin 1gm 50 ML IV ONE (12:10)
--- NOTE | 2022-09-13 12:40 | NUR ---
echo at bedside
[2022-09-13] MEDS ORDERED: morphine 2 MG/ML inj. syringe IV PRN (12:50)
[2022-09-13] MEDS ORDERED: potassium Cl 20 mEq SR tablet PO PRN ×2 (12:50)
[2022-09-13] MEDS ORDERED: HYDROcodone/acetaminophen 5mg/325mg tablet PO PRN (12:50)
[2022-09-13] MEDS ORDERED: acetaminophen 325mg tablet PO PRN (12:50)
[2022-09-13] MEDS ORDERED: ondansetron/PF 4mg/2ml inj IV PRN (12:50)
[2022-09-13] MEDS: CefTRIAXone/D5W-Rocephin 1gm 50 ML IV SCH (12:50)
[2022-09-13] MEDS ORDERED: potassium Cl 40MEQ/1/2NS 520ml 520 ML IV PRN (12:50)
[2022-09-13] MEDS ORDERED: magnesium Cl slow-release 64mg tablet PO PRN (12:50)
[2022-09-13] MEDS ORDERED: magnesium 4gm in 100ml NS 100 ML IV PRN (12:50)
[2022-09-13 13:20] LABS: MAGNESIUM 2.3 MG/DL (1.5-2.4)
--- NOTE | 2022-09-13 13:38 | NUR ---
condom cath replaced
--- NOTE | 2022-09-13 14:44 | NUR ---
repositioned , per pt request
[2022-09-13] MEDS ORDERED: CARV3.122 PO (16:17)
[2022-09-13] MEDS ORDERED: DOCU100C40 PO (16:17)
[2022-09-13] MEDS ORDERED: GABA300C PO (16:17)
[2022-09-13] MEDS ORDERED: ALLO300T8 PO (16:17)
[2022-09-13] MEDS ORDERED: LEVO25TA7 PO (16:17)
[2022-09-13] MEDS ORDERED: FURO-149 PO (16:17)
[2022-09-13] MEDS ORDERED: AMIO200T61 PO (16:18)
[2022-09-13] MEDS ORDERED: LACT1CAP75 PO (16:19)
[2022-09-13] MEDS ORDERED: FLO0.4C PO (16:19)
[2022-09-13] MEDS ORDERED: OMEP20TA23 PO (16:19)
[2022-09-13] MEDS ORDERED: DULO60CA65 PO (16:19)
[2022-09-13] MEDS ORDERED: LOSA50TA64 PO (16:19)
[2022-09-13] MEDS ORDERED: CHOL20003 PO (16:19)
[2022-09-13] MEDS ORDERED: PANT40TA54 PO (16:20)
[2022-09-13] MEDS ORDERED: MAG-11 PO (16:24)
[2022-09-13] MEDS ORDERED: RIVA15TA PO (16:24)
[2022-09-13] MEDS ORDERED: CYAN100082 PO (16:27)
[2022-09-13] MEDS ORDERED: ASCO500C18 PO (16:27)
[2022-09-13] MEDS ORDERED: FEBU40TA3 PO (16:27)
[2022-09-13] MEDS ORDERED: NITR0.4T51 SL (16:27)
[2022-09-13] MEDS ORDERED: POTA-82 PO (16:28)
[2022-09-13] MEDS: hydrALAZINE 20mg/ml inj. IV PRN (18:17)
--- NOTE | 2022-09-13 18:46 | NUR ---
Pt finished 80% of his dinner. Pt repositioned in bed and urinal given to patient. Callbell within reach.
[2022-09-13] MEDS: K and/or MAG REPLACEMENT MC SCH (20:00)
[2022-09-13] MEDS: methylPREDNISolone sod succ 125mg/2ml vial IV SCH (20:19)
--- NOTE | 2022-09-13 20:30 | NUR ---
Pt ambulated to restroom with walker. No SOB. Pt had BM. Settled back into bed.
--- NOTE | 2022-09-13 21:20 | NUR ---
Pt moved onto a hospital bed and tucked into bed
--- NOTE | 2022-09-14 02:26 | NUR ---
Pt in hospital bed and is sleeping. Pt respirations observed. Will continue to monitor.
--- NOTE | 2022-09-14 05:29 | NUR ---
Pt sleeping. Blood pressure improved. Respiratons observed. Will continue to monitor patient.
[2022-09-14] MEDS: CefTRIAXone/D5W-Rocephin 1gm 50 ML IV SCH (07:37)
[2022-09-14] MEDS: methylPREDNISolone sod succ 125mg/2ml vial IV SCH (07:37)
[2022-09-14] MEDS ORDERED: azithromycin/NS 500mg/250ml 250 ML IV SCH (08:00)
[2022-09-14] MEDS: K and/or MAG REPLACEMENT MC SCH (08:00)
[2022-09-14] MEDS: hydrALAZINE 20mg/ml inj. IV PRN (08:19)
[2022-09-14 08:51] LABS: BASOPHILS % (AUTO) 0.1 % (0-1); EOSINOPHILS % (AUTO) 0 % (0-6); HEMATOCRIT 32.1 % (42.0-52.0); HEMOGLOBIN 10.5 g/dl (14.0-17.9); LYMPHOCYTES % (AUTO) 11.7 % (21-51); MEAN CORPUSCULAR HEMOGLOBIN 33.1 PG (27.0-31.0); MEAN CORPUSCULAR HGB CONC 32.7 g/dL (33.0-36.5); MEAN CORPUSCULAR VOLUME 101.2 FL (78-98); MEAN PLATELET VOLUME 9.7 FL (7.4-10.4); MONOCYTES # (AUTO) 0.5 X10'3 (0-0.9); MONOCYTES % (AUTO) 5.8 % (2-12); NEUTROPHILS # (AUTO) 7.4 X10'3 (1.8-7.7); NEUTROPHILS % (AUTO) 82.4 % (42-75); PLATELET COUNT 279 X10'3 (140-440); RED BLOOD COUNT 3.17 X10'6 (4.70-6.10); RED CELL DISTRIBUTION WIDTH 17.7 % (11.5-14.5)
[2022-09-14 09:00] LABS: ALBUMIN 3.2 G/DL (3.4-5.0); ANION GAP 6 (8-16); BLOOD UREA NITROGEN 39 MG/DL (7-18); BUN/CREATININE RATIO 27.1 (5.4-32.0); CALCIUM 9.7 MG/DL (8.5-10.1); CHLORIDE 106 MMOL/L (99-107); CREATININE 1.44 MG/DL (0.60-1.10); GLUCOSE 145 MG/DL (70-104); MAGNESIUM 2.4 MG/DL (1.5-2.4); POTASSIUM 4.2 MMOL/L (3.5-5.1); SODIUM 141 MMOL/L (135-145); TOTAL CARBON DIOXIDE 29.3 MMOL/L (24-32); eGFR 46 ML/MIN
[2022-09-14 10:00] VITALS: BP 145/72
[2022-09-14] MEDS ORDERED: PRED10TA23 PO (10:54)
[2022-09-14] MEDS ORDERED: GABA300C PO (10:54)
[2022-09-14] MEDS ORDERED: LEVO-65 PO (10:54)
--- NOTE | 2022-09-14 14:28 | NUR ---
Patient arrived from the ER at 0930 and was discharged around 1130. We completed the paperwork and his came to get him at 1300. He was discharged with instructions, verbalizing understanding of instructions, in wheelchair accompanied by nursing staff and family going home via private vehicle. All lines and tubes including PIV with cannula intact and tele monitor have been removed. Education has been provided at bedside and all questions have been answered. Patient is stable and appropriate for discharge.
== END 2022-09-14 13:30 | disposition home or self-care (01) | DRG 291 ==
LOC: ER 08:16 → ED HOLD 12:50 → ORTHO 4S 09-14 09:12
PROVIDERS: ADMIT Internal Medicine; ATTEND Internal Medicine
PROC: BW241ZZ Computerized Tomography (CT Scan) of Chest and Abdomen using Low Osmolar Contrast (ICD-10-PCS; principal; 2022-09-13)
DX: I11.0 Hypertensive heart disease with heart failure (principal); I50.23 Acute on chronic systolic (congestive) heart failure; J44.1 Chronic obstructive pulmonary disease with (acute) exacerbation; E03.9 Hypothyroidism, unspecified; F17.290 Nicotine dependence, other tobacco product, uncomplicated; Z20.822 Contact with and (suspected) exposure to COVID-19; I25.10 Atherosclerotic heart disease of native coronary artery without angina pectoris; I48.91 Unspecified atrial fibrillation; F32.A Depression, unspecified; G89.29 Other chronic pain; M54.9 Dorsalgia, unspecified; I50.9 Heart failure, unspecified; K21.9 Gastro-esophageal reflux disease without esophagitis; M10.9 Gout, unspecified; N40.0 Benign prostatic hyperplasia without lower urinary tract symptoms; Z79.01 Long term (current) use of anticoagulants; Z79.899 Other long term (current) drug therapy; Z82.0 Family history of epilepsy and other diseases of the nervous system; Z82.49 Family history of ischemic heart disease and other diseases of the circulatory system; Z95.0 Presence of cardiac pacemaker; Z95.5 Presence of coronary angioplasty implant and graft; Z88.8 Allergy status to other drugs, medicaments and biological substances
CPT/HCPCS: 36415; 71045; 71260; 80048; 80053; 83735; 83880; 84484; 85025; 85379; 87502; 87503; 87635; 93306; 94640; 96374; 96375; 99285; A4349; A4615; C9803; G0378; J0360; J0456; J0696; J1940; J2930; J3490; Q9967